=== PATIENT | female | born 1965 | race Caucasian/White ===

== ENCOUNTER → 2017-12-02 | Outpatient (CLI) | payer OTHER | END | disposition home or self-care (01) | LOC: CFH 10:26 | PROVIDERS: ATTEND Family Medicine | DX: Z12.31 Encounter for screening mammogram for malignant neoplasm of breast (principal) | CPT/HCPCS: 77067 ==

== ENCOUNTER 2019-10-07 11:47 | Outpatient (CLI) | payer OTHER | END 2019-10-07 23:59 | disposition home or self-care (01) | LOC: CFH 11:47 | PROVIDERS: ATTEND Specialist | DX: C54.1 Malignant neoplasm of endometrium (principal); C43.9 Malignant melanoma of skin, unspecified; N60.02 Solitary cyst of left breast; N63.20 Unspecified lump in the left breast, unspecified quadrant | CPT/HCPCS: 71046; 76642; 77066 ==

== ENCOUNTER → 2019-11-24 | Outpatient (CLI) | payer OTHER | END | disposition home or self-care (01) | LOC: CFH 12:16 | PROVIDERS: ATTEND Internal Medicine | DX: M25.549 Pain in joints of unspecified hand (principal) | CPT/HCPCS: 77077 ==